=== PATIENT | female | born 1985 | race Caucasian/White ===

== ENCOUNTER → 2017-12-13 | Outpatient (CLI) | payer OTHER ==
--- NOTE | 2017-12-13 17:50 | RAD ---
OB ultrasound History: Uterine size date discrepancy. Comparison: None. Findings: There is a single intrauterine gestation in cephalic presentation. The placenta is anterior and fundal in location without evidence of placenta previa. The amount of amniotic fluid appears appropriate. Amniotic fluid index is 13.9 cm. Cervix is closed with cervical length of 4.72 cm. Biometric data is as follows: BPD = 4.35 cm for 19 weeks 1 days. HC = 16.72 cm for 19 weeks 3 days. AC = 14.34 cm for 19 weeks 5 days. FL = 3.24 cm for 20 weeks 1 days. HC/AC = 1.17, within normal limits. Overall, the average ultrasound age is 19 weeks 4 days for an estimated date of delivery of May 05, 2018. Estimated gestational age by last menstrual period calculation is 19 weeks 5 days. Estimated weight is 314 +/- 46 grams; percentile was not calculated. A 4 chamber heart is identified with positive cardiac activity. Heart appears appropriate in size and location. The estimated heart rate is 158 beats per minute. Bilateral upper and lower extremities are identified. There is a three-vessel cord with cord insertion visualized. stomach and urinary bladder are identified. Both kidneys are seen. The spine and brain are unremarkable. Nose and lips are visualized. No gross abnormalities are identified. Maternal ovaries are not visualized. IMPRESSION: 1. Single live intrauterine with average ultrasound age of 19 weeks 4 days. Electronically signed by: Quique Sethi MD (12/13/2017 5:47 PM) [id number]
== END | disposition home or self-care (01) ==
LOC: US 08:56
PROVIDERS: ATTEND Obstetrics & Gynecology
DX: O09.92 Supervision of high risk pregnancy, unspecified, second trimester (principal); O26.842 Uterine size-date discrepancy, second trimester; Z3A.19 19 weeks gestation of pregnancy
CPT/HCPCS: 76805